=== PATIENT | female | born 1950 | race Caucasian/White ===

== ENCOUNTER → 2018-10-20 | Outpatient (CLI) | payer OTHER ==
[~2018-10-20] MED LIST: ASPIR 8181 MG; ASPIR-TRIN325 MG PO; CLOPIDOGREL75 MG PO; DIPHENHIST50 MG PO; EFFIENT10 MG PO; ZOCOR20 MG PO
== END ==
LOC: RAD 11:39
DX: M47.26 Other spondylosis with radiculopathy, lumbar region (principal); M43.16 Spondylolisthesis, lumbar region; I25.10 Atherosclerotic heart disease of native coronary artery without angina pectoris

== ENCOUNTER → 2019-12-15 | Outpatient (CLI) | payer OTHER | LOC: SJCVCIMAG 09:47 | PROVIDERS: ATTEND Internal Medicine Cardiovascular Disease | DX: I08.3 Combined rheumatic disorders of mitral, aortic and tricuspid valves (principal); I25.10 Atherosclerotic heart disease of native coronary artery without angina pectoris; I73.9 Peripheral vascular disease, unspecified; I77.1 Stricture of artery; C18.9 Malignant neoplasm of colon, unspecified; E78.00 Pure hypercholesterolemia, unspecified; Q24.8 Other specified congenital malformations of heart ==

== ENCOUNTER → 2020-08-01 | Outpatient (CLI) | payer OTHER | LOC: SJCVCIMAG 09:09 | PROVIDERS: ATTEND Internal Medicine Cardiovascular Disease | DX: I25.10 Atherosclerotic heart disease of native coronary artery without angina pectoris (principal); I70.8 Atherosclerosis of other arteries; I35.0 Nonrheumatic aortic (valve) stenosis; I73.9 Peripheral vascular disease, unspecified; I10 Essential (primary) hypertension; E78.00 Pure hypercholesterolemia, unspecified; E04.2 Nontoxic multinodular goiter; F17.210 Nicotine dependence, cigarettes, uncomplicated; I77.1 Stricture of artery; E78.5 Hyperlipidemia, unspecified; C18.9 Malignant neoplasm of colon, unspecified; Z98.890 Other specified postprocedural states; Z95.828 Presence of other vascular implants and grafts; Z88.8 Allergy status to other drugs, medicaments and biological substances; Z79.899 Other long term (current) drug therapy; Z82.49 Family history of ischemic heart disease and other diseases of the circulatory system ==

== ENCOUNTER → 2021-03-06 | Outpatient (CLI) | payer OTHER | LOC: SJCVCIMAG 07:55 | PROVIDERS: ATTEND Internal Medicine Cardiovascular Disease | DX: I70.203 Unspecified atherosclerosis of native arteries of extremities, bilateral legs (principal); I65.23 Occlusion and stenosis of bilateral carotid arteries; I35.8 Other nonrheumatic aortic valve disorders; I11.9 Hypertensive heart disease without heart failure; E78.5 Hyperlipidemia, unspecified; E04.1 Nontoxic single thyroid nodule; M79.605 Pain in left leg; M79.604 Pain in right leg ==

== ENCOUNTER → 2021-03-14 | Outpatient (CLI) | payer OTHER ==
[~2021-03-14] VITALS: Ht 160 cm; Wt 70.3 kg
[~2021-03-14] MED LIST changes: +NORVASC10 MG PO; +PLAVIX 75 MG TA75 M1 PO; +ROSUVASTATIN CA20 MG PO; +VITAMIN B12-FO1 EAC1 PO
[2021-03-14 07:37] VITALS: BP 142/71
[2021-03-14 08:24] LABS: HEMATOCRIT 43.8 % (37.0-47.0); HEMOGLOBIN 14.6 gm/dL (12.0-15.0); MCH 31.9 pg (26.0-34.0); MCHC 33.4 g/dL (28.0-37.0); MCV 95.5 fL (80.0-100.0); RBC 4.59 mil/uL (4.20-5.00); RDW 13.9 % (10.5-14.5); WBC 9.3 thou/uL (4.0-11.0)
[2021-03-14 08:40] LABS: CREATININE 0.8 mg/dL (0.6-1.0); POTASSIUM 3.8 mmol/L (3.5-5.1)
--- NOTE | 2021-03-14 12:56 | CATHLAB ---
[facility] [place] [address] INVASIVE PROCEDURE REPORT Name: CALVIN COELHO Room #: REG ANKIT Arenas.#: [id number] Admission: 03/14/21 Attend Phys: James Ziegler MD Discharge: Date of : 50 Report #: [id number] THIS REPORT FOR: cc: Jerri Moreno DNP, Mary E. DNP Mancuso, Gerald M. MD [facility] ~ APPROVED REPORT Study performed: 03/14/2021 09:29:00 Patient Details Patient Status: Out-Patient Room #: The patient is a 70 year-old female Event Personnel Femi Alva Canine Enforcement Officer, Fahad Templeton RN RN, No, RTR Scrub, Frannie Caballero RTR Scrub, No, RTR Monitor Procedures Performed Left Heart Cath w/or w/o Coronaries [id number] [facility] Hemostasis w/ Mynx 28928 Initial Mod Sed Same Phys/QHP Gr5y [id number] 25825 Mod Sed Same Phys/QHP Ea [id number] Procedure Narrative The was infiltrated with 1% Lidocaine subcutaneous anesthesia. A SHEATH BRITE-TIP 6F X 11CM ([id number]) sheath was inserted into the RFA^. Coronary angiography was performed using coronary diagnostic catheters. The right coronary system was accessed and visualized with a JR4 catheter. The left coronary system was accessed and visualized with a JL4 catheter. The left ventricle was accessed and visualized with a PIGTAIL catheter. Left ventriculogram was performed in 30 degree projection. Closure device was deployed with a Fr MYNXGRIP 6/7F #[id number]. The patient tolerated the procedure well and there were no complications associated with the procedure. There was no hematoma. Sedation and contrast are combined totals between a lower extremity runoff and a heart cath. Intraoperative Conscious Sedation Sedation start time: 8:33 Case end Time: 10:18 Fentanyl 100 mcg Versed 2.0 mg Fluoro Time: 9:22 minutes [facility] [place] [place] [address] INVASIVE PROCEDURE REPORT Name: CALVIN COELHO Room #: REG [facility]#: [id number] Admission: 03/14/21 Attend Phys: James Ziegler, Discharge: Date of : 50 Report #: [id number] Dose: DAP 85840.51 cGycm2 1106 mGy Contrast Type and Amount: Omnipaque 50 ml Visipaque 132 Hemodynamics The aortic pressure is 127/52 mmHg with a mean of 76 mmHg. The left ventricular pressure is 146/8 mmHg with a mean of mmHg. The left ventricular end diastolic pressure is 26 mmHg. PCI Technique Lesion Percutaneous coronary intervention was performed on the Common iliac. Conclusion #1 Normal left ventricular size and systolic function EF 60%. #2 Left main widely patent mildly calcified giving rise to LAD and circumflex. #3 LAD is moderately calcified with 40 to 50% eccentric lesion at diagonal takeoff. Not occlusive disease. Brisk flow noted and preserved mid distal LAD around the apex and diagonal system. #4 circumflex OM nondominant with mild disease #5 dominant right coronary with an eccentric 50% mid vessel lesion moderately calcified. PDA YVETTE small but widely patent. Recommendations and plan: Continue aggressive risk factor modification no indication for coronary intervention. <ELECTRONICALLY SIGNED> By: Femi Alva MD, [facility] 03/14/21 1256 1256 1256 Femi Alva MD, FACC /INF
== END | disposition home or self-care (01) ==
LOC: CATH 06:47
PROVIDERS: ATTEND Nuclear Medicine Nuclear Cardiology
DX: I25.10 Atherosclerotic heart disease of native coronary artery without angina pectoris (principal); I70.212 Atherosclerosis of native arteries of extremities with intermittent claudication, left leg; M79.605 Pain in left leg; I70.1 Atherosclerosis of renal artery; I10 Essential (primary) hypertension; E78.00 Pure hypercholesterolemia, unspecified; E78.5 Hyperlipidemia, unspecified; F17.210 Nicotine dependence, cigarettes, uncomplicated; Z98.890 Other specified postprocedural states; Z79.899 Other long term (current) drug therapy; Z85.828 Personal history of other malignant neoplasm of skin; Z91.040 Latex allergy status

== ENCOUNTER → 2021-07-11 | Outpatient (CLI) | payer OTHER | LOC: SJCVCIMAG 08:12 | PROVIDERS: ATTEND Internal Medicine Cardiovascular Disease | DX: I70.0 Atherosclerosis of aorta (principal); M62.261 Nontraumatic ischemic infarction of muscle, right lower leg; M62.262 Nontraumatic ischemic infarction of muscle, left lower leg; I73.9 Peripheral vascular disease, unspecified; I77.9 Disorder of arteries and arterioles, unspecified; I77.1 Stricture of artery; I25.10 Atherosclerotic heart disease of native coronary artery without angina pectoris; I10 Essential (primary) hypertension; I35.0 Nonrheumatic aortic (valve) stenosis; E78.5 Hyperlipidemia, unspecified; F17.210 Nicotine dependence, cigarettes, uncomplicated; Z79.899 Other long term (current) drug therapy; Z79.82 Long term (current) use of aspirin; Z72.89 Other problems related to lifestyle; Z91.040 Latex allergy status; Z88.5 Allergy status to narcotic agent; Z88.8 Allergy status to other drugs, medicaments and biological substances; Z82.49 Family history of ischemic heart disease and other diseases of the circulatory system ==